=== PATIENT | female | born 1995 | race Caucasian/White ===

== ENCOUNTER 2016-08-11 15:34 | Emergency (ER) | payer OTHER ==
[2016-08-11] MEDS ORDERED: IBUPROFEN 600 MG TAB PO ONE (16:31)
--- NOTE | 2016-08-11 16:35 | EDPHY ---
H & P Time Seen by Provider: 08/11/16 16:18 HPI/ROS: HPI Right-sided pelvic pain. History of it. Sepsis. 21-year-old female by private vehicle with her friend. This patient complains of 2-3 days of right-sided adnexal pain consistent with prior ovarian cysts she has had. She describes it as sharp and cramping and radiating somewhat to her back. No fever. She has had no gross hematuria. Denies any other urinary complaints. She has had an appendectomy in the past. Significant past medical history is cystic fibrosis. She denies vaginal bleeding or vaginal discharge. Last menstrual period was 2 weeks ago. ROS: Constitutional: No fever, no chills. No weakness. Eyes: No discharge. No changes in vision. ENT: No sore throat. No nasal congestion or rhinorrhea. Respiratory: No cough. No shortness of breath. Cardiac: No chest pain, no palpitations. Gastrointestinal: As above, no vomiting, no diarrhea. Genitourinary: No hematuria. No dysuria or increased frequency with urination. As above. Musculoskeletal: No back pain. No neck pain. No myalgias or arthralgias. Skin: No rashes. Neurological: No headache. No focal weakness or altered sensation. Past medical history: Appendectomy, cystic fibrosis, Social history: [employer]. Here with her friend. Nonsmoker. Physical Exam: General Appearance: Alert, no distress. This patient is responding to questions appropriately and in full sentences. This patient appears well- hydrated and well-nourished. Eyes: Pupils equal and round no pallor or injection. No lid edema, erythema or injection. Respiratory: There are no retractions, lungs are clear to auscultation with good air movement bilaterally. Cardiovascular: Regular rate and rhythm. No murmur. Gastrointestinal: Abdomen is soft with vague and mild right lower adnexal tenderness on palpation, no masses, bowel sounds normal. No focal tenderness at McBurney's point. No Calhoun sign. Neurological: Motor sensory function is grossly intact. Cranial nerves are normal. Gait is normal. Skin: Warm and dry, no rashes. Musculoskeletal: No CVA tenderness on palpation Extremities are symmetrical. All joints range without pain or impingement. Psychiatric: No agitation. No depression. Database: EKG: Imaging: Pelvic ultrasound; significant for a simple, 4.2 cm right ovarian cyst. Good blood flow to both ovaries. No free fluid. No other significant pathology. Procedures: Emergency department course: Patient given 600 mg of ibuprofen. Her vital signs have been reviewed. She is afebrile, mildly tachycardic and pulse oximetry is 91% on room air. She reports this is normal for her secondary to her cystic fibrosis. She is not asking for any stronger medications than ibuprofen. She has no contraindications to ibuprofen. She will be sent for a pelvic ultrasound. Urine specimen obtained. 6:00 p.m., patient re-evaluated. She is resting comfortably at this time. Results of her ultrasound were discussed with her. Urinalysis and urine is pending at this time. She denies any urinary complaints. She is requesting discharge. Diagnosis of ovarian cyst reviewed. She feels comfortable going home and I feel she is safe for discharge. If there is anything significant on her urinalysis we will call her regarding further treatment and evaluation. Follow-up and return to emergency department precautions were discussed with her. All of her questions were answered. She was discharged from the emergency department with her friends in good condition. Differential Diagnosis: The differential diagnosis on this patient includes but is not limited to ovarian cyst, ureterolithiasis, urinary tract infection. Appendicitis, volvulus , ovarian torsion, ectopic unlikely. This represents a partial list of diagnoses considered. These considerations are based on history, physical exam, past history, reassessment and diagnostic testing. Smoking Status: Never smoked Constitutional: Initial Vital Signs Temperature (C) 36.7 C 08/11/16 15:52 Heart Rate 104 H 08/11/16 15:52 Respiratory Rate 16 08/11/16 15:52 Blood Pressure 106/69 08/11/16 15:52 O2 Sat (%) 91 L 08/11/16 15:52 O2 Delivery Mode Room Air Allergies/Adverse Reactions: adhesive tape Allergy (Verified 08/11/16 15:52) Home Medications: Medication Instructions Recorded Digestive Enzyme 08/11/16 Pulmozyme 08/11/16 Medical Decision Making - Data Points Medications Given: Discontinued Medications Ibuprofen (Motrin) 600 mg PO EDNOW ONE Stop: 08/11/16 16:32 Last Admin: 08/11/16 16:51 Dose: 600 mg Departure - Departure Disposition: Home, Routine, Self-Care Clinical Impression: Ovarian cyst Condition: Good Instructions: Ovarian Cyst (ED) Additional Instructions: Read and follow provided instructions. Follow-up with your primary care physician in 1-2 days for re-evaluation as needed. Ibuprofen dosin mg every 6 hours with meals for the next 3 days only. Return to the emergency department for worsening pain, fever, vomiting or other serious concerns. Referrals: GERARDO WEAVER MS,PNP,BSN [Other] - As per Instructions
[2016-08-11 18:15] VITALS: RESP 18
[2016-08-11 18:20] VITALS: BP 112/52; PULSE 81; TEMP 98.6; O2SAT 94
== END 2016-08-11 18:18 | disposition home or self-care (01) ==
DX: N83.201 Unspecified ovarian cyst, right side (principal); Z90.49 Acquired absence of other specified parts of digestive tract